=== PATIENT | male | born 1990 | race Two or more races ===

== ENCOUNTER 2018-06-16 19:29 | Emergency (ER) | payer SELFPAY ==
--- NOTE | 2018-06-16 19:54 | EDM.PDOC ---
ED HPI GENERAL MEDICAL PROBLEM - General Chief Complaint: Lower Extremity Injury/Pain Stated Complaint: LEFT PINKY TOE SWOLLEN AND PAINFUL Time Seen by Provider: 06/16/18 19:51 Source of Information: Reports: Patient History Limitations: Reports: No Limitations - History of Present Illness INITIAL COMMENTS - FREE TEXT/NARRATIVE: HISTORY AND PHYSICAL: History of present illness: Patient is a 27-year-old male here with complaints of left pinky toe pain. He states it started bothering him 2 days ago. He reports he had something similar in the past and thinks it was an abscess. He reports it is painful to step on. He states he did stick a pin in it but denies any drainage. He denies any fevers , chills, nausea, vomiting. Patient states he took bactrim for this in the past and is requesting this again. Review of systems: As per history of present illness and below otherwise all systems reviewed and negative. Past medical history: As per history of present illness and as reviewed below otherwise noncontributory. Surgical history: As per history of present illness and as reviewed below otherwise noncontributory. Social history: No reported history of drug or alcohol abuse. Family history: As per history of present illness and as reviewed below otherwise noncontributory. Physical exam: General: Patient sitting comfortably in no acute distress and nontoxic appearing HEENT: Atraumatic, normocephalic, pupils reactive, negative for conjunctival pallor or scleral icterus, mucous membranes moist, throat clear, neck supple, nontender, trachea midline. No meningeal signs. Lungs: Clear to auscultation, breath sounds equal bilaterally, chest nontender. Heart: S1S2, regular, negative for clicks, rubs, or overt murmur. Abdomen: Soft, nondistended, nontender. Negative for masses or hepatosplenomegaly. Negative for costovertebral tenderness. Pelvis: Stable nontender. Genitourinary: Deferred. Rectal: Deferred. Extremities: Left pinky toe is slightly erythematous. There is a small area of broken skin where patient was using pin. There is no fluctuance or induration. Also noted is white/yellow skin flaky in between toes consistent with tinea pedis. Atraumatic, negative for cords or calf pain. Neurovascular unremarkable. Neuro: Awake, alert, oriented. Cranial nerves II through XII unremarkable. Cerebellum unremarkable. Motor and sensory unremarkable throughout. Exam nonfocal. Notes: Diagnostics: x-ray left foot Therapeutics: None Prescriptions: Bactrim Impression: Cellulitis Plan: 1. Take antibiotic as directed 2. Follow up with primary care provider 3. Return to ED as needed as discussed Definitive disposition and diagnosis as appropriate pending reevaluation and review of above. left little toe Pain Score (Numeric/FACES): 9 - Related Data Allergies Allergy/AdvReac Type Severity Reaction Status Date / Time No Known Allergies Allergy Verified 06/16/18 19:34 Home Meds: Home Meds . [No Known Home Meds] 06/16/18 [History] Past Medical History - Past Surgical History GI Surgical History: Reports: Cholecystectomy Social & Family History - Family History Family Medical History: Noncontributory - Tobacco Use Smoking Status *Q: Current Every Day Smoker Years of Tobacco use: 10 Packs/Tins Daily: 1 - Recreational Drug Use Recreational Drug Use: No Review of Systems - Review of Systems Review Of Systems: ROS reveals no pertinent complaints other than HPI. ED EXAM, GENERAL - Physical Exam Exam: See Below (see dictation) Course - Vital Signs Last Recorded V/S: Last Vital Signs Temp 36.4 C 06/16/18 19:29 Pulse 99 06/16/18 19:29 Resp 18 06/16/18 19:29 BP 143/81 H 06/16/18 19:29 Pulse Ox 96 06/16/18 19:29 - Orders/Labs/Meds Orders: Active Orders 24 hr Category Date Time Status Foot 2V Lt [CR] Stat Exams 06/16/18 19:47 Taken Departure - Departure Time of Disposition: 21:09 Disposition: Home, Self-Care 01 Condition: Good Clinical Impression: Cellulitis - Discharge Information Referrals: PCP,None [Primary Care Provider] - Forms: ED Department Discharge Additional Instructions: The following information is given to patients seen in the emergency department who are being discharged to home. This information is to outline your options for follow-up care. We provide all patients seen in our emergency department with a follow-up referral. The need for follow-up, as well as the timing and circumstances, are variable depending upon the specifics of your emergency department visit. If you don't have a primary care physician on staff, we will provide you with a referral. We always advise you to contact your personal physician following an emergency department visit to inform them of the circumstance of the visit and for follow-up with them and/or the need for any referrals to a consulting specialist. The emergency department will also refer you to a specialist when appropriate. This referral assures that you have the opportunity for follow-up care with a specialist. All of these measure are taken in an effort to provide you with optimal care, which includes your follow-up. Under all circumstances we always encourage you to contact your private physician who remains a resource for coordinating your care. When calling for follow-up care, please make the office aware that this follow-up is from your recent emergency room visit. If for any reason you are refused follow-up, please contact the [facility] Emergency Department at and asked to speak to the emergency department charge nurse. [facility] [address] [place] [address] [place] [address] 1. Take antibiotic as directed 2. Follow up with primary care provider 3. Return to ED as needed as discussed - My Orders Last 24 Hours: My Active Orders 06/16/18 19:47 Foot 2V Lt [CR] Stat - Assessment/Plan Last 24 Hours: My Active Orders 06/16/18 19:47 Foot 2V Lt [CR] Stat
--- NOTE | 2018-06-17 19:23 | CR ---
EXAM DATE: 06/16/18 PATIENT'S AGE: 27 Patient: ANGELA DAMON Facility: [place], [place] Site . Site : 1990 Study: XRay Extremity Left foot [id number]/30/2018 8:23:33 PM Ordering Physician: Doctor Srivastava Final Report: INDICATION: Pain COMPARISON: none TECHNIQUE: Two-view left foot FINDINGS: The bones are anatomically aligned. There is no evidence of fracture, erosion or intrinsic bone lesion. The soft tissues appear normal. IMPRESSION: Negative left foot. Dictated by Cristi Cobos MD @ Jun 16 2018 9:00PM (Electronic Signature) Report Signed by Proxy. ALDEN
== END 2018-06-16 21:24 | disposition home or self-care (01) ==
LOC: MW.ED 19:29
DX: L03.032 Cellulitis of left toe (principal); F17.210 Nicotine dependence, cigarettes, uncomplicated
CPT/HCPCS: 73620-26-LT; 73620-LT; 99283

== ENCOUNTER 2020-05-18 18:58 | Emergency (ER) | payer MEDICAID, OTHER ==
--- NOTE | 2020-05-18 19:25 | EDM.PDOC ---
ED HPI GENERAL MEDICAL PROBLEM - General Chief Complaint: Respiratory Problem Stated Complaint: SHORTNESS OF BREATH, HEADACHE Time Seen by Provider: 05/18/20 19:09 - History of Present Illness INITIAL COMMENTS - FREE TEXT/NARRATIVE: 29-year-old male with no significant past history recently quit smoking who is presenting with cough and shortness of breath for 7 days. He reports a mild sore throat yesterday. He denies fevers or myalgias no abdominal pain or vomiting. No recent travel. Patient did have his middle brother visit him 2 weeks ago for about 7 days before the symptoms started. That brother had been living with his younger brother and mother who both tested positive for coronavirus. However, he reports that his middle brother subsequently tested negative. No other known exposures. No lower extremity pain or swelling no clear exacerbating or alleviating factors radiation or other associated symptoms. - Related Data Allergies Allergy/AdvReac Type Severity Reaction Status Date / Time No Known Allergies Allergy Verified 05/18/20 19:16 Home Meds: Home Meds . [No Known Home Meds] 06/16/18 [History] Past Medical History - Past Surgical History GI Surgical History: Reports: Cholecystectomy Social & Family History - Family History Family Medical History: Noncontributory - Tobacco Use Smoking Status *Q: Former Smoker Used Tobacco, but Quit: Yes Month/Year Tobacco Last Used: 04/2020. Tobacco Use Comment: quit 2 weeks ago; 10 year hx of 1/2 PPD ED ROS GENERAL - Review of Systems Review Of Systems: See Below Free Text/Narrative/Comment: General: No fever. Skin: No rash. Eyes: No vision problems. ENT: No sore throat. Neck: No neck stiffness. Respiratory: Per HPI Cardiac: Mild burning substernal chest pain that also started 7 days ago nonexertional not pleuritic Gastrointestinal: No nausea, vomiting or abdominal pain. Urinary: No dysuria. Musculoskeletal: No myalgias/arthralgias. Neurologic: No headache. ED EXAM, GENERAL - Physical Exam Exam: See Below Free Text/Narrative:: General Appearance: No acute distress, appears comfortable Skin: No rash HEENT: Normocephalic/atraumatic, sclera anicteric, mucous membranes moist Neck: Normal range of motion Chest and Lungs: Bilateral breath sounds, clear to auscultation Cardiovascular: Regular rate and rhythm, no murmur Abdomen: Soft, non-tender Back: Normal Musculoskeletal: No edema or tenderness Neurologic: Awake, alert, no obvious deficits, moving all extremities Psychiatric: Appropriate, cooperative Course - Vital Signs Last Recorded V/S: Last Vital Signs Temp 97.3 F 05/18/20 19:14 Pulse 79 05/18/20 19:14 Resp 18 05/18/20 19:14 BP 137/75 05/18/20 19:14 Pulse Ox 96 05/18/20 19:14 - Orders/Labs/Meds Labs: Laboratory Tests 05/18/20 Range/Units 19:30 COVID-19 (NEL) NEGATIVE (NEGATIVE) Departure - Departure Time of Disposition: 20:02 Disposition: Home, Self-Care 01 Condition: Good Clinical Impression: Viral respiratory infection - Discharge Information *PRESCRIPTION DRUG MONITORING PROGRAM REVIEWED*: Not Applicable *COPY OF PRESCRIPTION DRUG MONITORING REPORT IN PATIENT YVONNE: Not Applicable Instructions: Viral Respiratory Infection, [id number] Referrals: [facility] [Outside] - 1 Week Forms: ED Department Discharge Additional Instructions: You should start feeling better in the next few days. Please follow-up with the primary care clinic. If your shortness of breath worsens you develop severe chest pain or fever or any other new symptoms that concern you please return to the emergency department. The following information is given to patients seen in the emergency department who are being discharged to home. This information is to outline your options for follow-up care. We provide all patients seen in our emergency department with a follow-up referral. The need for follow-up, as well as the timing and circumstances, are variable depending upon the specifics of your emergency department visit. If you don't have a primary care physician on staff, we will provide you with a referral. We always advise you to contact your personal physician following an emergency department visit to inform them of the circumstance of the visit and for follow-up with them and/or the need for any referrals to a consulting specialist. The emergency department will also refer you to a specialist when appropriate. This referral assures that you have the opportunity for follow-up care with a specialist. All of these measure are taken in an effort to provide you with optimal care, which includes your follow-up. Under all circumstances we always encourage you to contact your private physician who remains a resource for coordinating your care. When calling for follow-up care, please make the office aware that this follow-up is from your recent emergency room visit. If for any reason you are refused follow-up, please contact the [facility] Emergency Department at and asked to speak to the emergency department charge nurse. Sepsis Event Note (ED) - Evaluation Sepsis Screening Result: No Definite Risk - Focused Exam Vital Signs: Vital Signs Temp Pulse Resp BP Pulse Ox 05/18/20 19:14 97.3 F 79 18 137/75 96 - Assessment/Plan Assessment:: 29-year-old male presenting with cough shortness of breath sore throat with potential covert exposure. Lungs are clear chest x-ray to exclude bacterial pneumonia COVID swab pending as well. Multiple other etiologies were considered pulmonary embolism considered but no pleuritic chest pain no tachycardia no hypoxia patient is PERC negative. ACS considered but chest pain is not his primary presenting finding it is not exertional chest pain he is exceptionally young with minimal cardiac risk factors. No tachycardia that would suggest myocarditis. Patient satting well on room air could likely manage COVID at home if positive. Chest x-ray without sign of pneumonia, cardiomegaly or pulmonary edema COVID swab negative I would favor non-COVID viral respiratory infection strict return precautions discussed and understood patient will follow-up with his primary care provider.
--- NOTE | 2020-05-18 19:43 | CR ---
Chest: Portable view of the chest was obtained. Comparison: No prior chest imaging. Heart size and mediastinum are normal. Lungs are clear with no acute parenchymal change. Bony structures are grossly intact. Impression: 1. Nothing acute is seen on portable chest x-ray. Diagnostic code #1 Study was dictated in MDT
== END 2020-05-18 20:15 | disposition home or self-care (01) ==
LOC: MW.ED 18:58
DX: J98.8 Other specified respiratory disorders (principal); B34.9 Viral infection, unspecified; Z90.49 Acquired absence of other specified parts of digestive tract; Z87.891 Personal history of nicotine dependence; Z20.828 Contact with and (suspected) exposure to other viral communicable diseases
CPT/HCPCS: 71045; 71045-26; 99283; 99285; U0002